=== PATIENT | male | born 1980 | race Two or more races ===

== ENCOUNTER → 2025-10-12 | Outpatient (CLI) | payer MEDICAID, SELFPAY ==
--- NOTE | 2025-10-12 14:30 | XR_ITS ---
Examination: Retroperitoneal ultrasound, complete Technique: Multiple high resolution grayscale images of the retroperitoneum obtained, including kidneys and bladder. Exam date and time: October 12, 2025, 1418 hours INDICATIONS: Abnormal proteinuria on laboratory examination this month FINDINGS: Right kidney 11.8 cm renal cortex 2.3 cm Left kidney 12.2 cm renal cortex 1.9 cm Mild renal scar formation Increased arterial flow to the left kidney No bladder mass or bladder calculi Bladder prevoid volume 261 cc Prostate normal size no prostate nodules IMPRESSION: Mild bilateral renal scarring Mild increased arterial flow to the left kidney, clinical correlation advised
== END | disposition home or self-care (01) ==
PROVIDERS: PCP Nurse Practitioner Primary Care; Referring Provider Nurse Practitioner Primary Care; Visit Provider Nurse Practitioner Primary Care
DX: N28.89 Other specified disorders of kidney and ureter (principal)
CPT/HCPCS: 76770